=== PATIENT | female | born 1955 | race Caucasian/White ===

== ENCOUNTER 2016-12-01 17:10 | Inpatient (IN) | payer SELFPAY ==
[2016-12-01 18:00] LABS: APPEARANCE,URINE Cloudy; BILIRUBIN,URINE 1+ (NEGATIVE); COLOR,URINE Red; GLUCOSE, URINE (UA) NEGATIVE (NEGATIVE); KETONES,URINE TRACE (NEGATIVE); LEUKOCYTE ESTERASE ,URINE 3+ (NEGATIVE); NITRATE,URINE POSITIVE (NEGATIVE); OCCULT BLOOD,URINE 3+ (NEG-TRACE); PH,URINE 5.5
[2016-12-01 18:05] LABS: ICTOTEST,URINE NEGATIVE (NEGATIVE); RBC,URINE TNTC (0-3AV/HPF); WBC,URINE 80-100 (0-5AV/HPF)
[2016-12-01] MEDS ORDERED: SODIUM CHLORIDE 0.9% 1000ML 1,000 ML IV ONE (18:05)
[2016-12-01] MEDS ORDERED: SOLUMEDROL 125 MG/2 ML 125 MG/2 ML PDS IV ONE (18:06)
[2016-12-01] MEDS ORDERED: KETOROLAC TROMETHAMINE 30 MG/ML SOL IV ONE (18:07)
[2016-12-01] MEDS ORDERED: ONDANSETRON HCL 4 MG/2 ML 4 MG in SODIUM CHLORIDE 0.9% 100 ML 100 ML IV ONE (18:10)
[2016-12-01] MEDS ORDERED: ONDANSETRON HCL 4 MG/2 ML SOL IV ONE (18:10)
[2016-12-01] MEDS ORDERED: SOLUMEDROL 125 MG/2 ML 125 MG/2 ML PDS ONE (18:14)
[2016-12-01] MEDS ORDERED: KETOROLAC TROMETHAMINE 30 MG/ML SOL ONE (18:14)
[2016-12-01] MEDS ORDERED: ONDANSETRON HCL 4 MG/2 ML SOL ONE (18:15)
[2016-12-01] MEDS ORDERED: TAMSULOSIN HYDROCHLORIDE 0.4 MG CAP PO SCH (18:15)
[2016-12-01 18:20] LABS: BASOPHILS % (AUTO) 1 % (0-3); EOSINOPHILS % (AUTO) 1 % (0-9); HEMATOCRIT 28 % (35-47); MEAN CORPUSCULAR HGB CONC 36.6 gm/dl (32.0-36.0); MONOCYTES % (AUTO) 13.3 % (0-12); NEUTROPHILS % (AUTO) 71.6 % (37-80)
[2016-12-01 18:21] LABS: MEAN CORPUSCULAR VOLUME 81 fL (81-99)
[2016-12-01 18:25] LABS: CALCIUM 9.9 mg/dl (8.5-10.1); POTASSIUM 3.1 mMol/L (3.5-5.1)
[2016-12-01] MEDS ORDERED: HYDROMORPHONE HCL 2 MG/ML SOL IV ONE (19:55)
[2016-12-01] MEDS ORDERED: HYDROMORPHONE 1 MG/ML SYRINGE ONE (19:56)
[2016-12-01] MEDS ORDERED: MORPHINE SULFATE 30 MG IV ONE (21:46)
[2016-12-01] MEDS: MORPHINE SULFATE 30 MG VIAL IV PRN (22:45)
[2016-12-01] MEDS: SODIUM CHLORIDE 0.9% 250 ML 250 ML IV SCH (22:57)
[2016-12-01] MEDS: SODIUM CHLORIDE 0.9% FLUSH 10 ML SOL IV SCH (22:57)
[2016-12-01] MEDS: LEVOFLOXACIN 500 MG TAB PO SCH (23:22)
[2016-12-02] MEDS: ONDANSETRON 4 MG ODT BU PRN ×3 (06:51→20:42)
[2016-12-02] MEDS: SODIUM CHLORIDE 0.9% 250 ML 250 ML IV SCH ×4 (06:52→18:00)
[2016-12-02] MEDS: SODIUM CHLORIDE 0.9% FLUSH 10 ML SOL IV SCH ×2 (06:52→15:04)
[2016-12-02 07:33] LABS: CALCIUM 9.6 mg/dl (8.5-10.1); POTASSIUM 3.3 mMol/L (3.5-5.1)
[2016-12-02] MEDS ORDERED: ENOXAPARIN 60 MG SOL SC SCH ×2 (09:00→21:00)
[2016-12-02] MEDS: LEVOFLOXACIN 500 MG TAB PO SCH (09:07)
[2016-12-02] MEDS ORDERED: FENTANYL 12 MCG PATCH TDM TD SCH (13:30)
[2016-12-03] MEDS: SODIUM CHLORIDE 0.9% FLUSH 10 ML SOL IV SCH ×3 (00:18→17:17)
[2016-12-03] MEDS: APAP/HYDROCODONE 325/5 TAB PO PRN ×3 (00:30→13:22)
[2016-12-03] MEDS: ONDANSETRON 4 MG ODT BU PRN (03:50)
[2016-12-03] MEDS: MORPHINE SULFATE 30 MG VIAL IV PRN (04:00)
[2016-12-03] MEDS: SODIUM CHLORIDE 0.9% 250 ML 250 ML IV SCH ×2 (05:22→14:08)
[2016-12-03 07:26] LABS: CALCIUM 9.5 mg/dl (8.5-10.1)
[2016-12-03] MEDS ORDERED: SODIUM CHLORIDE 0.9% FLUSH 10 ML SOL IV PRN (08:47)
[2016-12-03] MEDS ORDERED: FENTANYL 25 MCG PATCH TDM TD SCH (09:30)
[2016-12-03] MEDS: LEVOFLOXACIN 500 MG TAB PO SCH (10:26)
[2016-12-03] MEDS: PROCHLORPERAZINE MALEATE 5 MG TAB PO SCH ×3 (10:26→20:19)
[2016-12-03 10:39] LABS: ABO O; ANTIBODY SCREEN Negative; RH TYPE Negative
[2016-12-03 10:40] LABS: UNIT TYPE O NEGATIVE
[2016-12-03 10:41] LABS: UNIT TYPE O NEGATIVE
[2016-12-03] MEDS: FUROSEMIDE 20mg SOL IV SCH ×3 (13:22→20:19)
[2016-12-03 13:58] LABS: UNIT TYPE O NEGATIVE
[2016-12-03] MEDS: HYDROMORPHONE HYDROCHLORIDE 2 MG TAB PO PRN (17:27)
[2016-12-03] MEDS ORDERED: ALUMINUM/MAGNESIUM 30 ML SUS PO PRN (18:07)
[2016-12-04] MEDS: HYDROMORPHONE HYDROCHLORIDE 2 MG TAB PO PRN ×2 (00:05→05:48)
[2016-12-04] MEDS: ONDANSETRON 4 MG ODT BU PRN (00:05)
[2016-12-04] MEDS: SODIUM CHLORIDE 0.9% 250 ML 250 ML IV SCH (00:07)
[2016-12-04] MEDS: SODIUM CHLORIDE 0.9% FLUSH 10 ML SOL IV SCH ×2 (00:46→08:13)
[2016-12-04 07:59] VITALS: BP 119/75; RESP 20; TEMP 98.3
[2016-12-04] MEDS: LEVOFLOXACIN 500 MG TAB PO SCH (08:10)
[2016-12-04] MEDS: PROCHLORPERAZINE MALEATE 5 MG TAB PO SCH (08:10)
[2016-12-04 08:53] VITALS: PULSE 87
[2016-12-04 10:31] VITALS: O2SAT 92
== END 2016-12-04 09:42 | disposition home or self-care (01) | DRG 755 ==
LOC: ED 17:10 → UNDOADMOB 20:50 → ACUTE CARE 20:50 → OBSVTOIN 12-03 09:00
PROVIDERS: ADMIT Family Medicine; ATTEND Family Medicine
PROC: 30233N1 Transfusion of Nonautologous Red Blood Cells into Peripheral Vein, Percutaneous Approach (ICD-10-PCS; principal; 2016-12-03)
DX: C57.9 Malignant neoplasm of female genital organ, unspecified (principal); C78.7 Secondary malignant neoplasm of liver and intrahepatic bile duct; C77.5 Secondary and unspecified malignant neoplasm of intrapelvic lymph nodes; C78.02 Secondary malignant neoplasm of left lung; C78.01 Secondary malignant neoplasm of right lung; N13.1 Hydronephrosis with ureteral stricture, not elsewhere classified; C79.89 Secondary malignant neoplasm of other specified sites; N39.0 Urinary tract infection, site not specified; D64.9 Anemia, unspecified
CPT/HCPCS: 36415; 74176; 80048; 81001; 85018; 85025; 86850; 86900; 86901; 86920; 87077; 87088; 87186; 94762; 96365; 96374; 96375; 99070; 99219; 99285; J1650; J1885; J1940; J2270; J2405; J2930; P9016; Q0164; J1170

== ENCOUNTER 2016-12-09 21:26 | Observation (INO) | payer MEDICAID ==
[2016-12-09] MEDS ORDERED: ALBUTEROL/IPRATROPIUM 1 VIAL SOL ONE (21:46)
[2016-12-09] MEDS ORDERED: ALBUTEROL/IPRATROPIUM 1 VIAL SOL INH ONE (21:59)
[2016-12-09] MEDS ORDERED: ONDANSETRON HCL 4 MG TAB PO ONE (21:59)
[2016-12-09] MEDS ORDERED: MORPHINE SULFATE 10 MG/ML SOL IV ONE (22:03)
[2016-12-09] MEDS ORDERED: MORPHINE SULFATE 10 MG/ML SOL ONE (22:06)
[2016-12-09] MEDS ORDERED: ONDANSETRON HCL 4 MG/2 ML SOL ONE (22:06)
[2016-12-09 22:17] LABS: HEMATOCRIT 30 % (35-47); MEAN CORPUSCULAR HGB CONC 35.9 gm/dl (32.0-36.0)
[2016-12-09] MEDS: SODIUM CHLORIDE 0.9% FLUSH 10 ML SOL IV PRN (22:18)
[2016-12-09 22:25] LABS: MEAN CORPUSCULAR VOLUME 81 fL (81-99)
[2016-12-09 22:35] LABS: ALBUMIN 1.9 gm/dl (3.4-5.0); ALT 24 IU/L (14-63); CALCIUM 10.5 mg/dl (8.5-10.1); GLOM FILT RATE 87 mL/min (>60); POTASSIUM 3.6 mMol/L (3.5-5.1); SODIUM 135 mMol/L (136-145)
[2016-12-09 22:37] LABS: ANISOCYTOSIS SLIGHT; BASOPHILS % (MANUAL) 0 % (0-3); EOSINOPHILS % (MANUAL) 0 % (0-9); LYMPHOCYTES % (MANUAL) 5 % (10-50)
[2016-12-10] MEDS ORDERED: DOCUSATE SODIUM 100 MG SGL PO PRN (01:21)
[2016-12-10] MEDS ORDERED: ONDANSETRON 4 MG ODT BU PRN (01:21)
[2016-12-10] MEDS: HYDROMORPHONE HYDROCHLORIDE 2 MG TAB PO PRN ×3 (06:19→19:37)
[2016-12-10] MEDS: SODIUM CHLORIDE 0.9% FLUSH 10 ML SOL IV PRN ×2 (06:20→20:05)
[2016-12-10] MEDS ORDERED: FENTANYL 25 MCG PATCH TDM TD SCH ×2 (09:00→17:00)
[2016-12-10] MEDS: MAGNESIUM HYDROXIDE 30 ML SUS PO SCH (09:15)
[2016-12-10] MEDS: PROCHLORPERAZINE MALEATE 5 MG TAB PO SCH ×3 (09:15→20:05)
[2016-12-10] MEDS: SULFAMETHOXAZOLE/TRIMETHOPRI 800/160 MG PO SCH ×2 (09:15→20:05)
[2016-12-10] MEDS: ENOXAPARIN 100 MG SOL SC SCH (09:22)
[2016-12-10 20:04] VITALS: RESP 20
[2016-12-11] MEDS: HYDROMORPHONE HYDROCHLORIDE 2 MG TAB PO PRN ×3 (01:13→11:04)
[2016-12-11] MEDS: PROCHLORPERAZINE MALEATE 5 MG TAB PO SCH (08:59)
[2016-12-11] MEDS: MAGNESIUM HYDROXIDE 30 ML SUS PO SCH (09:00)
[2016-12-11] MEDS: SULFAMETHOXAZOLE/TRIMETHOPRI 800/160 MG PO SCH (09:00)
[2016-12-11] MEDS: ENOXAPARIN 100 MG SOL SC SCH (09:01)
[2016-12-11 09:38] VITALS: BP 106/60; PULSE 103; TEMP 97.8; O2SAT 90
[2016-12-12] MEDS ORDERED: FENTANYL 50 MCG PATCH TDM TD SCH (19:00)
[2016-12-12] MEDS ORDERED: FENTANYL 25 MCG PATCH TDM TD SCH (19:00)
== END 2016-12-11 11:10 | disposition home or self-care (01) | DRG 755 ==
LOC: ED 21:26 → ACUTE CARE 12-10 00:58
PROVIDERS: ADMIT Family Medicine; ATTEND Family Medicine
DX: C55 Malignant neoplasm of uterus, part unspecified (principal); C78.7 Secondary malignant neoplasm of liver and intrahepatic bile duct; C78.00 Secondary malignant neoplasm of unspecified lung; C77.2 Secondary and unspecified malignant neoplasm of intra-abdominal lymph nodes; C77.1 Secondary and unspecified malignant neoplasm of intrathoracic lymph nodes; R06.00 Dyspnea, unspecified
CPT/HCPCS: 36415; 51798; 71010; 71275; 80053; 83880; 84484; 85007; 85027; 85378; 93005; 94150; 94762; 96374; 99219; 99284; J1650; J2270; J2405; J7620; Q0164; Q9967

== ENCOUNTER 2016-12-18 15:08 | Emergency (ER) | payer SELFPAY ==
[2016-12-18 15:40] VITALS: RESP 36
[2016-12-18 18:12] VITALS: BP 156/62; PULSE 101; TEMP 98.8; O2SAT 92
== END 2016-12-18 17:34 | DRG 755 ==
LOC: ED 15:08
DX: C56.9 Malignant neoplasm of unspecified ovary (principal); C78.00 Secondary malignant neoplasm of unspecified lung
CPT/HCPCS: 71010; 99284